=== PATIENT | female | born 1955 | race Caucasian/White ===

== ENCOUNTER 2021-11-17 12:59 | Inpatient (IN) | payer MEDICARE, MEDICAID ==
[~2021-11-17] VITALS: Ht 172.7 cm; Wt 90.7 kg
[2021-11-17 14:32] LABS: BASOPHILS % 0.5 % (0.0-2.0); EOSINOPHILS % 1.2 % (0.0-5.0); HEMATOCRIT. 33.5 % (36.0-48.0); HEMOGLOBIN. 11.1 g/dL (12.0-16.0); LYMPHOCYTES % 26.7 % (20.0-50.0); MEAN CORPUSCULAR HEMOGLOBIN 33.5 pg (28.0-32.0); MEAN CORPUSCULAR VOLUME 101.6 fL (81.0-99.0); MEAN PLATELET VOLUME 8.5 fl (7.4-10.4); NEUTROPHILS % 61.6 % (40.0-76.0); PLATELET 254 x1000/uL (130-400); RED BLOOD CELL COUNT 3.29 mill/uL (4.2-5.4); RED CELL DISTRIBUTION WIDTH 15.3 % (11.6-14.6)
[2021-11-17 14:41] LABS: CHLORIDE 108 mEq/L (98-107)
[2021-11-17 14:43] LABS: INR 1.1; PROTHROMBIN TIME 11.5 sec (9.6-11.0)
[2021-11-17] MEDS ORDERED: IOHEXOL-350 100 ML BOTTLE ONE (17:16)
[2021-11-17 21:15] VITALS: BP 134/73
[2021-11-18] VITALS: BP 128/65
[2021-11-18] MEDS ORDERED: ONDANSETRON HCL 4MG/2ML INJ IV PRN (00:15)
[2021-11-18] MEDS ORDERED: DIATR MEGLU/DIATRIZOATE SOLN 30ML PO SCH (00:15)
[2021-11-18] MEDS ORDERED: MAGNESIUM/ALUMINUM HYDROXIDE/SIMETHICONE 30ML UDC PO PRN (00:15)
[2021-11-18] MEDS ORDERED: ZOLPIDEM TARTRATE 5MG TABLET PO PRN (00:15)
[2021-11-18] MEDS ORDERED: MORPHINE SULFATE 2 MG/ML CPJ (NOT FOR IM USE) IV PRN (00:15)
[2021-11-18] MEDS ORDERED: METHOTREXATE SODIUM 2 . 5MG TABLET PO SCH ×4 (00:15→21:00)
[2021-11-18 04:00] VITALS: BP 138/78
[2021-11-18] MEDS: ACETAMINOPHEN 325MG TABLET PO PRN (06:06)
[2021-11-18 08:00] VITALS: BP 123/73
[2021-11-18 08:06] LABS: BASOPHILS % 0.4 % (0.0-2.0); EOSINOPHILS % 1.5 % (0.0-5.0); HEMATOCRIT. 31.3 % (36.0-48.0); HEMOGLOBIN. 10.7 g/dL (12.0-16.0); LYMPHOCYTES % 30.1 % (20.0-50.0); MEAN CORPUSCULAR HEMOGLOBIN 34.4 pg (28.0-32.0); MEAN CORPUSCULAR VOLUME 100.8 fL (81.0-99.0); MEAN PLATELET VOLUME 8.7 fl (7.4-10.4); MONOCYTES % 10.9 % (2.0-8.0); NEUTROPHILS % 57.1 % (40.0-76.0); PLATELET 233 x1000/uL (130-400); RED BLOOD CELL COUNT 3.11 mill/uL (4.2-5.4); RED CELL DISTRIBUTION WIDTH 15.3 % (11.6-14.6)
[2021-11-18 08:10] LABS: D-DIMER 0.28 mg/L FEU (<0.50); PARTIAL THROMBOPLASTIN TIME 25.7 sec (23.4-31.0)
[2021-11-18 08:17] LABS: CHLORIDE 108 mEq/L (98-107)
[2021-11-18 08:32] LABS: C REACTIVE PROTEIN QUANT 1.1 mg/L (0.0-3.0); CREATINE KINASE 180 IU/L (26-192); T4 FREE 0.84 ng/dL (0.76-1.46)
[2021-11-18] MEDS: DEXT 5%/0.45% NACL 1000ML 1,000 ML IV SCH ×2 (09:00→13:48)
[2021-11-18] MEDS: FLUOXETINE HCL 20MG CAPSULE PO SCH (09:03)
[2021-11-18] MEDS: PREDNISONE 10MG TABLET PO SCH (09:04)
[2021-11-18] MEDS: POTASSIUM CHLORIDE 20MEQ TABLET SR PO SCH (09:04)
[2021-11-18] MEDS: ENOXAPARIN 30MG/0.3ML SYR SUBCUT SCH ×2 (09:05→20:12)
[2021-11-18] MEDS: FUROSEMIDE 40MG TABLET PO SCH ×2 (09:05→20:08)
[2021-11-18] MEDS: FOLIC ACID 1MG TABLET PO SCH (09:07)
[2021-11-18] MEDS: HYDROXYCHLOROQUINE SULFATE 200MG TABLET PO SCH ×2 (09:22→16:49)
[2021-11-18] MEDS ORDERED: NALOXONE HCL 0.4MG/ML VIAL IV PRN (09:45)
[2021-11-18] MEDS ORDERED: IOHEXOL-300 100 ML BOTTLE ONE (11:08)
[2021-11-18 12:00] VITALS: BP 120/70
[2021-11-18] MEDS ORDERED: LIDOCAINE HCL 1% 10 MG/ML 10ML VIAL ONE (13:06)
[2021-11-18 16:00] VITALS: BP 119/68
[2021-11-18 20:00] VITALS: BP 140/71
[2021-11-18] MEDS: CYCLOBENZAPRINE 10MG TABLET PO SCH (20:08)
[2021-11-19] VITALS: BP 138/70
[2021-11-19] MEDS ORDERED: VANCOMYCIN 1G PREMIX 200 ML IV SCH ×3 (00:15→21:00)
[2021-11-19] MEDS ORDERED: VANCOMYCIN 1500MG in DEXTROSE 5% WATER 250ML IV NR (02:00)
[2021-11-19] MEDS: PIPERACILLIN/TAZOBACTAM 3.375 G in DEXTROSE 5% WATER 50 ML IV SCH ×2 (03:00→22:13)
[2021-11-19] MEDS: DEXT 5%/0.45% NACL 1000ML 1,000 ML IV SCH (03:01)
[2021-11-19 04:00] VITALS: BP 145/73
[2021-11-19 06:01] LABS: CHLORIDE 102 mEq/L (98-107)
[2021-11-19 06:19] LABS: BASOPHILS % 0.4 % (0.0-2.0); EOSINOPHILS % 0.5 % (0.0-5.0); HEMATOCRIT. 34.7 % (36.0-48.0); HEMOGLOBIN. 11.8 g/dL (12.0-16.0); LYMPHOCYTES % 29.5 % (20.0-50.0); MEAN CORPUSCULAR VOLUME 99.8 fL (81.0-99.0); MEAN PLATELET VOLUME 8.9 fl (7.4-10.4); MONOCYTES % 10.5 % (2.0-8.0); NEUTROPHILS % 59.1 % (40.0-76.0); PLATELET 265 x1000/uL (130-400); RED BLOOD CELL COUNT 3.48 mill/uL (4.2-5.4)
[2021-11-19 08:00] VITALS: BP 134/56
[2021-11-19] MEDS: FLUOXETINE HCL 20MG CAPSULE PO SCH (08:37)
[2021-11-19] MEDS: FUROSEMIDE 40MG TABLET PO SCH ×2 (08:37→22:11)
[2021-11-19] MEDS: FOLIC ACID 1MG TABLET PO SCH (08:37)
[2021-11-19] MEDS: PREDNISONE 10MG TABLET PO SCH (08:37)
[2021-11-19] MEDS: POTASSIUM CHLORIDE 20MEQ TABLET SR PO SCH ×2 (08:37→19:19)
[2021-11-19] MEDS: ENOXAPARIN 30MG/0.3ML SYR SUBCUT SCH ×2 (08:38→22:11)
[2021-11-19] MEDS: HYDROXYCHLOROQUINE SULFATE 200MG TABLET PO SCH ×2 (08:38→19:18)
[2021-11-19] MEDS: ACETAMINOPHEN 325MG TABLET PO PRN (08:47)
[2021-11-19] MEDS ORDERED: POTASSIUM CHLORIDE 20MEQ TABLET SR PO NR (11:45)
[2021-11-19 12:00] VITALS: BP 133/82
[2021-11-19 16:00] VITALS: BP 148/69
[2021-11-19 20:00] VITALS: BP 140/93
[2021-11-19] MEDS: CYCLOBENZAPRINE 10MG TABLET PO SCH (22:15)
[2021-11-20] VITALS: BP 104/63
[2021-11-20 04:00] VITALS: BP 120/60
[2021-11-20] MEDS: PIPERACILLIN/TAZOBACTAM 3.375 G in DEXTROSE 5% WATER 50 ML IV SCH ×3 (05:13→21:07)
[2021-11-20 08:00] VITALS: BP 122/81
[2021-11-20 08:06] LABS: BASOPHILS % 0.5 % (0.0-2.0); EOSINOPHILS % 1.1 % (0.0-5.0); HEMOGLOBIN. 12.7 g/dL (12.0-16.0); LYMPHOCYTES % 31.5 % (20.0-50.0); MEAN CORPUSCULAR HEMOGLOBIN 34.1 pg (28.0-32.0); MEAN CORPUSCULAR VOLUME 99.7 fL (81.0-99.0); MEAN PLATELET VOLUME 8.5 fl (7.4-10.4); MONOCYTES % 10.5 % (2.0-8.0); NEUTROPHILS % 56.4 % (40.0-76.0); PLATELET 281 x1000/uL (130-400); RED BLOOD CELL COUNT 3.71 mill/uL (4.2-5.4)
[2021-11-20 09:10] LABS: ALDOLASE 4.4 U/L (3.3-10.3); ANGIOTENSION CONVERTING ENZYME 66 U/L (14-82); ANTI-MYELOPEROXIDASE AB < 0.2 units (0.0-0.9); ANTI-PROTEINASE 3 ABS < 0.2 units (0.0-0.9)
[2021-11-20] MEDS: FOLIC ACID 1MG TABLET PO SCH (09:33)
[2021-11-20] MEDS: POTASSIUM CHLORIDE 20MEQ TABLET SR PO SCH ×2 (09:34→17:40)
[2021-11-20] MEDS: FLUOXETINE HCL 20MG CAPSULE PO SCH (09:34)
[2021-11-20] MEDS: FUROSEMIDE 40MG TABLET PO SCH ×2 (09:34→21:06)
[2021-11-20] MEDS: ENOXAPARIN 30MG/0.3ML SYR SUBCUT SCH ×2 (09:34→21:06)
[2021-11-20] MEDS: PREDNISONE 10MG TABLET PO SCH (09:34)
[2021-11-20] MEDS: HYDROXYCHLOROQUINE SULFATE 200MG TABLET PO SCH ×2 (09:34→17:40)
[2021-11-20] MEDS: DEXT 5%/0.45% NACL 1000ML 1,000 ML IV SCH ×2 (09:35→17:13)
[2021-11-20 12:00] VITALS: BP 128/67
[2021-11-20] MEDS ORDERED: POTASSIUM CHLORIDE 20MEQ TABLET SR PO NR (14:00)
[2021-11-20 16:00] VITALS: BP 104/65
[2021-11-20 20:00] VITALS: BP 124/80
[2021-11-20] MEDS: CYCLOBENZAPRINE 10MG TABLET PO SCH (21:06)
[2021-11-20] MEDS ORDERED: VANCOMYCIN 1G PREMIX 200 ML IV SCH (23:00)
[2021-11-21] VITALS: BP 112/67
[2021-11-21 04:00] VITALS: BP 118/69
[2021-11-21] MEDS: PIPERACILLIN/TAZOBACTAM 3.375 G in DEXTROSE 5% WATER 50 ML IV SCH (05:12)
[2021-11-21 06:06] LABS: BASOPHILS % 0.5 % (0.0-2.0); EOSINOPHILS % 1.1 % (0.0-5.0); HEMATOCRIT. 38.6 % (36.0-48.0); HEMOGLOBIN. 13.1 g/dL (12.0-16.0); LYMPHOCYTES % 30.7 % (20.0-50.0); MEAN CORPUSCULAR HEMOGLOBIN 34.2 pg (28.0-32.0); MEAN CORPUSCULAR VOLUME 100.6 fL (81.0-99.0); MEAN PLATELET VOLUME 8.5 fl (7.4-10.4); MONOCYTES % 9.3 % (2.0-8.0); NEUTROPHILS % 58.4 % (40.0-76.0); PLATELET 316 x1000/uL (130-400); RED BLOOD CELL COUNT 3.84 mill/uL (4.2-5.4); RED CELL DISTRIBUTION WIDTH 14.7 % (11.6-14.6)
[2021-11-21] MEDS ORDERED: POTASSIUM CHLORIDE 20MEQ TABLET SR PO SCH (07:20)
[2021-11-21] MEDS ORDERED: FUROSEMIDE 40MG TABLET PO SCH (07:20)
[2021-11-21 08:00] VITALS: BP 125/62
[2021-11-21] MEDS: ENOXAPARIN 30MG/0.3ML SYR SUBCUT SCH (10:03)
[2021-11-21] MEDS: HYDROXYCHLOROQUINE SULFATE 200MG TABLET PO SCH (10:04)
[2021-11-21] MEDS: PREDNISONE 10MG TABLET PO SCH (10:04)
[2021-11-21] MEDS: FLUOXETINE HCL 20MG CAPSULE PO SCH (10:04)
[2021-11-21] MEDS: FOLIC ACID 1MG TABLET PO SCH (10:04)
[2021-11-21] MEDS: DEXT 5%/0.45% NACL 1000ML 1,000 ML IV SCH (10:05)
[2021-11-21 12:00] VITALS: BP 116/76
[2021-11-21 12:31] VITALS: BP 125/86
[2021-11-21 15:06] LABS: ANTI-CARDIOLIPIN AB IGA < 9 APL U/mL (0-11); ANTI-CARDIOLIPIN AB IGG < 9 GPL U/mL (0-14); ANTI-CARDIOLIPIN AB IGM < 9 MPL U/mL (0-12)
[2021-11-21] MEDS ORDERED: VANCOMYCIN 750MG PREMIX 150 ML IV SCH (23:00)
[2021-11-23 09:09] LABS: ANA IFA Positive (.)
[2021-11-23 10:06] LABS: ATYPICAL P-ANCA <1:20 titer (Neg:<1:20); CYTOPLASMIC C-ANCA <1:20 titer (Neg:<1:20); PERINUCLEAR P-ANCA <1:20 titer (Neg:<1:20)
== END 2021-11-21 14:37 | disposition home or self-care (01) | DRG 603 ==
LOC: ER 12:59 → 6EST 15:19 → EDBEDREQSVC 15:21 → EDBEDREQ 15:21 → EDBEDREQTM 15:21 → ENRESERV 18:30
PROVIDERS: ADMIT Internal Medicine Rheumatology; ATTEND Internal Medicine Rheumatology
DX: L03.116 Cellulitis of left lower limb (principal); I50.32 Chronic diastolic (congestive) heart failure; E46 Unspecified protein-calorie malnutrition; M06.9 Rheumatoid arthritis, unspecified; M79.7 Fibromyalgia; D64.9 Anemia, unspecified; E87.6 Hypokalemia; F32.A Depression, unspecified; R60.0 Localized edema; F41.9 Anxiety disorder, unspecified; F20.9 Schizophrenia, unspecified; Z68.30 Body mass index [BMI] 30.0-30.9, adult; Z86.718 Personal history of other venous thrombosis and embolism; Z83.3 Family history of diabetes mellitus; Z82.49 Family history of ischemic heart disease and other diseases of the circulatory system; I11.0 Hypertensive heart disease with heart failure
CPT/HCPCS: 36415; 73701; 73718; 74177; 80048; 80053; 80202; 82085; 82164; 82550; 83520; 83735; 83880; 84134; 84145; 84439; 84550; 85025; 85379; 85651; 86140; 86147; 86235; 86256; 93005; 93306; 93971; 97161; 99285; J1650; J2543; J3370; J3490; J7060; J7512; J8610; Q9963; Q9967